=== PATIENT | female | born 2000 | race Caucasian/White ===

== ENCOUNTER 2022-01-05 17:39 | Emergency (ER) | payer SELFPAY ==
[~2022-01-05] VITALS: Ht 170.1 cm; Wt 131.5 kg
--- NOTE | 2022-01-05 17:50 | ED Lower Extremity ---
General Stated Complaint: R FOOT PAIN Source: patient Exam Limitations: no limitations (BLAKE JERRY) History of Present Illness Date Seen by Provider: Jan 05, 2022 Time Seen by Provider: 17:48 Initial Comments Patient is a 21-year-old female who presents ED with with right lateral ankle pain. 1 hour ago she was attempting to put on underwear bearing weight on her left leg at the time when she lost her balance landing on her right leg causing inward rotation of her ankle. She heard immediate pop. Has not been able to bear weight. Obvious swelling noted to right lateral ankle. Neurovascular intact. Able to move her toes. She took Tylenol right before arrival. No history of previous fracture. Denies hitting her head, back pain, chest pain, cough or shortness of breath. (BLAKE JERRY) Allergies and Home Medications Allergies Coded Allergies: No Known Drug Allergies (Unverified , 01/05/22) Patient Home Medication List Home Medication List Reviewed: Yes (BLAKE JERRY) Albuterol Sulfate (Proair Hfa) 1 Puff Puff, 2 PUFF IH Q4H, (Reported) Entered as Reported by: LEWIS DAVALOS on 01/07/22 1206 Hydrocodone/Acetaminophen (Hydrocodone-Acetamin 5-325 mg) 5 Mg-325 Mg Tablet, 1 TAB PO Q4H PRN for PAIN-MODERATE (5-7) Prescribed by: FITO MATOS on 01/05/22 1855 [Zoloft] Unknown Strength , Unknown Dose, (Reported) Entered as Reported by: LEWIS DAVALOS on 01/07/22 1206 Review of Systems Constitutional: No chills, No diaphoresis EENTM: No hearing loss, No ear pain, No blurred vision, No double vision Respiratory: No cough, No dyspnea on exertion Cardiovascular: No chest pain Gastrointestinal: No abdominal pain, No diarrhea, No nausea, No vomiting Genitourinary: No decreased output, No discharge Musculoskeletal: No back pain; joint pain, joint swelling Skin: change in color (BLAKE JERRY) All Other Systems Reviewed Negative Unless Noted: Yes (BLAKE JERRY) Physical Exam Vital Signs Vital Signs - First Documented 01/05/22 17:45 Temp 36.6 Pulse 76 Resp 18 B/P (MAP) 128/93 (105) Pulse Ox 97 O2 Delivery Room Air (NICHOLAS POE MD) Vital Signs Capillary Refill : (BLAKE JERRY) Height, Weight, BMI Height: '" Weight: lbs. oz. kg; BMI Method: General Appearance: WD/WN, no apparent distress HEENT: PERRL/EOMI, normal ENT inspection, TMs normal, pharynx normal Neck: non-tender, full range of motion, supple, normal inspection Cardiovascular: regular rate, rhythm, no edema, no gallop, no JVD Respiratory: chest non-tender, lungs clear, normal breath sounds, no respiratory distress Gastrointestinal: normal bowel sounds, non tender, soft, no organomegaly, no pulsatile mass Back: normal inspection, no CVA tenderness Hips: bilateral hip non-tender, bilateral hip normal inspection, bilateral hip normal range of motion, bilateral hip no evidence of injury Legs: bilateral leg non-tender, bilateral leg normal range of motion, bilateral leg no evidence of injury, bilateral leg abrasions Knees: bilateral knee non-tender, bilateral knee normal inspection, bilateral knee normal range of motion, bilateral knee no evidence of injury Ankles: right ankle pain, right ankle soft tissue tenderness, right ankle swelling Neurologic/Psychiatric: 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 Neurovascular intact. Ordered: Crutches Hand-Made Type: orthoglass Splint Application: Short Leg (BLAKE JERRY) Progress/Results/Core Measures Results/Orders Lab Results Laboratory Tests Test 01/05/22 18:03 Range/Units Urine Color YELLOW Urine Clarity CLOUDY Urine pH 5.5 5-9 Urine Specific Switchback >=1.030 1.016-1.022 Urine Protein NEGATIVE NEGATIVE Urine Glucose (UA) NEGATIVE NEGATIVE Urine Ketones NEGATIVE NEGATIVE Urine Nitrite NEGATIVE NEGATIVE Urine Bilirubin NEGATIVE NEGATIVE Urine Urobilinogen 0.2 < = 1.0 MG/DL Urine Leukocyte Esterase NEGATIVE NEGATIVE Urine RBC (Auto) NEGATIVE NEGATIVE Urine RBC NONE /HPF Urine WBC 0-2 /HPF Urine Squamous Epithelial Cells 5-10 /HPF Urine Crystals PRESENT H /LPF Urine Calcium Oxalate Crystals MODERATE H /LPF Urine Amorphous Sediment MOD JUDAH URATES H /LPF Urine Bacteria TRACE /HPF Urine Casts NONE /LPF Urine Mucus SMALL H /LPF Urine Culture Indicated NO Urine Test NEGATIVE NEGATIVE (NICHOLAS POE MD) Vital Signs/I&O 01/05/22 01/05/22 17:45 19:22 Temp 36.6 Pulse 76 74 Resp 18 18 B/P (MAP) 128/93 (105) 119/87 Pulse Ox 97 97 O2 Delivery Room Air Room Air (NICHOLAS POE MD) Departure Communication (PCP) Patient with a fall. Denies hitting her head loss of conscious. Swelling noted to the right ankle with subtle deformity. Neuro vastly intact. X-ray shows a displaced bimalleolar ankle fracture with disruption of the ankle mortise. Patient was given oral pain medication. Patient was discussed with Dr. Camarena who offered inpatient and surgery tomorrow or follow-up in the office on Friday with surgery on Friday. She agreed with surgery on Friday. Pain controlled here. Recommend placing in a splint. Patient was placed in a posterior short leg and sugar-tong bulky splint. Attempted to apply lateral pressure and help reduce the slight displacement fragments. No evidence of compartment syndrome.m patient was provided crutches. No weightbearing on that leg. Recommend n.p.o. after midnight on Friday. Follow-up in the office at 830. Surgery later that day and will stay the night. She agrees with this plan of action. (BLAKE JERRY) Impression Primary Impression: Ankle fracture Disposition: 01 HOME, SELF-CARE Condition: Stable Departure-Patient Inst. Decision time for Depature: 18:51 (BLAKE JERRY) Referrals: HAWA CAMARENA MD Patient Instructions: Ankle Fracture ED Add. Discharge Instructions: Will discharge with pain medication. Recommend elevate. Crutches as provided. Follow-up with Dr. Camarena on Friday 83 at his office. Surgery that day will stay the night. If any worsening pain to return back to ED for further evaluation. Scripts Hydrocodone/Acetaminophen (Hydrocodone-Acetamin 5-325 mg) 5 Mg-325 Mg Tablet 1 TAB PO Q4H PRN for PAIN-MODERATE (5-7), #20 TAB Prov: BLAKE JERRY 01/05/22 ATTENDING PHYSICIAN NOTE: I was physically present as attending physician in the emergency department during the care of this patient, but I was not directly involved in the decision making or delivery of care for this patient. (NICHOLAS POE MD) BLAKE JERRY Jan 05, 2022 17:50 NICHOLAS POE MD Jan 07, 2022 14:14
[2022-01-05] MEDS ORDERED: HYDROcodone/APAP 5 MG/325 MG (LORTAB) TAB PO ONE (18:15)
--- NOTE | 2022-01-05 18:17 | Diagnostic Imaging Report ---
EXAMINATION: Right ankle 3 views. HISTORY: Ankle injury. COMPARISON: None available. FINDINGS: There are displaced bimalleolar ankle fractures with disruption of the ankle mortise. There is severe soft tissue swelling. Small heel spur is present. IMPRESSION: Displaced bimalleolar ankle fractures with disruption of the ankle mortise. Dictated by: Dictated on workstation # [id number]
[2022-01-05 18:25] LABS: BILIRUBIN,URINE NEGATIVE (NEGATIVE); CLARITY,URINE CLOUDY; COLOR,URINE YELLOW; GLUCOSE, URINE (UA) NEGATIVE (NEGATIVE); KETONES,URINE NEGATIVE (NEGATIVE); LEUKOCYTE ESTERASE ,URINE NEGATIVE (NEGATIVE); NITRITE,URINE NEGATIVE (NEGATIVE); PH,URINE 5.5 (5-9); PROTEIN,URINE NEGATIVE (NEGATIVE)
[2022-01-05 18:37] LABS: AMORPHOUS SEDIMENT,UR MOD AMOR URATES /LPF; BACTERIA,URINE TRACE /HPF; CALCIUM OXALATE CRYSTALS,UR MODERATE /LPF; WBC,URINE 0-2 /HPF
[2022-01-05] MEDS ORDERED: ACHD5005 PO (18:55)
[2022-01-05 19:22] VITALS: BP 119/87
== END 2022-01-05 19:22 | disposition home or self-care (01) ==
LOC: ER 17:42
DX: S82.841A Displaced bimalleolar fracture of right lower leg, initial encounter for closed fracture (principal); S80.812A Abrasion, left lower leg, initial encounter; Z28.310 Unvaccinated for COVID-19; X50.1XXA Overexertion from prolonged static or awkward postures, initial encounter; W01.0XXA Fall on same level from slipping, tripping and stumbling without subsequent striking against object, initial encounter
CPT/HCPCS: 29515; 73610; 81000; 84703

== ENCOUNTER 2022-01-07 10:12 | Day surgery (SDC) | payer SELFPAY ==
[~2022-01-07] VITALS: Ht 177.8 cm; Wt 131.8 kg
[2022-01-07] VITALS (12 sets, daily range): BP systolic 128–153; BP diastolic 58–86
[~2022-01-07 10:12] MED LIST changes: -ASPIRIN 325 MG (5 GR) TABLET PO SCH; -D5 1/2 NS 1000 ML IV SOLUTION 1,000 ML IV SCH; -HYDROcodone/APAP 5 MG/325 MG (LORTAB) TAB PO PRN; -RT-ALBUINH IH; -ZOLOFT; -ceFAZolin 2 GM IV Premixed 50 ML IV SCH; -fentaNYL INJ 100 MCG/2 ML AMP IVP PRN
[2022-01-07] MEDS ORDERED: NEO/POLY/BAC (NEOSPORIN) OINT 15 GM TUBE ONE (10:28)
[2022-01-07] MEDS ORDERED: LIDOCAINE/EPI 2% 1:200,00 (XYLOCAINE) 20 ML VIAL ONE (10:28)
[2022-01-07] MEDS ORDERED: BUPIVACAINE 0.25% 30 ML (SENSORCAINE) VIAL ONE (10:28)
[2022-01-07] MEDS: LACTATED RINGERS 1,000 ML IV PRN ×2 (11:05→13:36)
[2022-01-07] MEDS ORDERED: proPOfol 200 MG/20 ML (DIPRIVAN) VIAL IV ONE ×2 (11:09→11:53)
[2022-01-07] MEDS ORDERED: MIDAZOLAM 2 MG/2 ML (VERSED) VIAL ONE (11:09)
[2022-01-07] MEDS ORDERED: fentaNYL INJ 100 MCG/2 ML AMP ONE (11:09)
[2022-01-07] MEDS ORDERED: LIDOCAINE PF 2% 5 ML (XYLOCAINE) VIAL ONE (11:09)
[2022-01-07] MEDS ORDERED: ceFAZolin 2 GM IV Premixed 50 ML ONE (11:18)
[2022-01-07 11:25] LABS: BASOPHILS # (AUTO) 0.1 10^3/uL (0.0-0.1); BASOPHILS % (AUTO) 0 % (0-10); EOSINOPHILS # (AUTO) 0.3 10^3/uL (0.0-0.3); EOSINOPHILS % (AUTO) 3 % (0-10); HEMATOCRIT 41 % (35-52); HEMOGLOBIN 13.4 g/dL (11.5-16.0); LYMPHOCYTES # (AUTO) 3.2 10^3/uL (1.0-4.0); LYMPHOCYTES % (AUTO) 26 % (12-44); MEAN CORPUSCULAR HEMOGLOBIN 28 pg (25-34); MEAN CORPUSCULAR HGB CONC 32 g/dL (32-36); MEAN CORPUSCULAR VOLUME 86 fL (80-99); MEAN PLATELET VOLUME 11.7 fL (9.0-12.2); MONOCYTES # (AUTO) 0.9 10^3/uL (0.0-1.0); MONOCYTES % (AUTO) 7 % (0-12); NEUTROPHILS # (AUTO) 7.9 10^3/uL (1.8-7.8); NEUTROPHILS % (AUTO) 64 % (42-75); PLATELET COUNT 265 10^3/uL (130-400); WHITE BLOOD COUNT 12.5 10^3/uL (4.3-11.0)
[2022-01-07 11:38] LABS: CALCIUM 9.1 MG/DL (8.5-10.1); CREATININE SERUM 0.84 MG/DL (0.60-1.30); POTASSIUM 3.5 MMOL/L (3.6-5.0)
[2022-01-07] MEDS ORDERED: SUCCINYLCHOLINE INJ 100 MG/5 ML SYR/VIAL ONE (11:54)
[2022-01-07] MEDS ORDERED: RT-ALBUINH IH (12:06)
[2022-01-07] MEDS ORDERED: ZOLOFT (12:06)
[2022-01-07] MEDS ORDERED: SEVOFLURANE (ULTANE) 15 ML INHAL SOLN ONE ×2 (12:24→12:25)
[2022-01-07] MEDS ORDERED: morphine INJ 10 MG/ML 1ML (SYR OR VIAL) ONE (12:27)
[2022-01-07] MEDS ORDERED: MEPERIDINE (DEMEROL) INJ 50 MG/ML IVP ONE (13:30)
[2022-01-07] MEDS ORDERED: morphine INJ 10 MG/ML 1ML (SYR OR VIAL) IVP ONE (13:30)
[2022-01-07] MEDS ORDERED: ONDANSETRON 4 MG/2 ML (SDV) Z0FRAN IVP PRN (13:30)
[2022-01-07] MEDS ORDERED: fentaNYL INJ 100 MCG/2 ML AMP IVP ONE (13:30)
[2022-01-07] MEDS ORDERED: MEPERIDINE (DEMEROL) INJ 50 MG/ML ONE (13:37)
--- NOTE | 2022-01-07 15:15 | Diagnostic Imaging Report ---
INDICATION: Fluoroscopy utilized in Surgery. FINDINGS: Three views show a sideplate along the distal fibula with bone screws and anatomical realignment of the lateral malleolar fracture. Two cannulated bone screws are in the medial malleolus with anatomic alignment. The ankle mortise appears in good alignment. IMPRESSION: Fluoroscopy time reported in Surgery of 23 seconds. Dictated by: Dictated on workstation # [id number]
[2022-01-07] MEDS ORDERED: HYDROcodone/APAP 5 MG/325 MG (LORTAB) TAB PO PRN (15:30)
[2022-01-07] MEDS ORDERED: D5 1/2 NS 1000 ML IV SOLUTION 1,000 ML IV SCH (15:30)
[2022-01-07] MEDS ORDERED: fentaNYL INJ 100 MCG/2 ML AMP IVP PRN (15:30)
[2022-01-07] MEDS: ceFAZolin 2 GM IV Premixed 50 ML IV SCH (18:12)
[2022-01-07] MEDS: fentaNYL INJ 100 MCG/2 ML AMP IVP PRN (23:22)
[2022-01-08] MEDS: ceFAZolin 2 GM IV Premixed 50 ML IV SCH (02:48)
[2022-01-08] MEDS: fentaNYL INJ 100 MCG/2 ML AMP IVP PRN ×2 (02:51→04:57)
[2022-01-08 04:52] VITALS: BP 141/77
[2022-01-08 07:33] VITALS: BP 118/74
[2022-01-08] MEDS ORDERED: ASPIRIN 325 MG (5 GR) TABLET PO SCH (09:00)
--- NOTE | 2022-01-08 10:05 | Progress Note - Ortho ---
Progress Note Subjective Date of Exam 01/08/22 Chief Complaint Bimalleolar fracture right ankle POD#1 HPI/Events since last exam Tamanna Is 1 day postop open reduction internal fixation bimalleolar fracture right ankle. She has been up ambulating with physical therapy. She had difficulty with the crutches but did better with the walker. She is still having some pain and its worse when she gets up but she thinks she is ready to go home. She has been taking hydrocodone 10/325 which is helping with the pain. Review of Systems Reviewed and no additions or changes Allergies: Coded Allergies: No Known Drug Allergies (Unverified , 01/05/22) Home Meds Active Scripts Hydrocodone/Acetaminophen (Hydrocodone-Acetamin 5-325 mg) 5 Mg-325 Mg Tablet, 1 TAB PO Q4H PRN for PAIN-MODERATE (5-7), #20 TAB Prov:BLAKE JERRY 01/05/22 Reported Medications [Zoloft] Unknown Strength No Conflict Check 01/07/22 Albuterol Sulfate (PROAIR HFA) 1 Puff Puff, 2 PUFF IH Q4H, EA 1 PUFF = 90 MCG 01/07/22 Objective Exam Constitutional: [] HEENT: [] Neck: [] Cardiovascular: [] Respiratory: [] Gastrointestinal: [] Genitourinary: [] Skin: [] Back/Spine: [] Extremities: []Splint is in good condition. Normal sensation of the foot and toes with good cap refill. She can move her toes without pain. Neurologic: [] Psychiatric: [] Hematologic/lymphatic/immunologic: [] Vital Signs Vital Signs Date Time Temp Pulse Resp B/P (MAP) Pulse Ox O2 Delivery O2 Flow Rate FiO2 01/08/22 08:00 97 Nasal Cannula 2.00 01/08/22 07:33 36.3 50 16 118/74 (89) 99 Room Air 01/08/22 04:52 36.3 50 18 141/77 (98) 97 Room Air 01/07/22 23:17 36.6 52 18 131/69 (89) 97 Nasal Cannula 2.00 01/07/22 19:58 97 Nasal Cannula 2.00 01/07/22 19:38 36.6 57 16 131/78 (95) 97 Nasal Cannula 2.00 01/07/22 19:38 36.6 57 16 131/78 (95) 97 Nasal Cannula 2.00 01/07/22 16:07 36.3 53 18 153/86 (108) 93 OxyMask 2.00 01/07/22 16:05 36.3 53 18 153/86 (108) 93 OxyMask 2.00 01/07/22 14:15 OxyMask 2.00 01/07/22 14:15 36.7 18 136/82 (100) 94 OxyMask 2.00 01/07/22 14:10 OxyMask 2.00 01/07/22 14:10 18 142/85 (104) 95 OxyMask 2.00 01/07/22 14:00 OxyMask 2.00 01/07/22 14:00 18 141/83 (102) 93 OxyMask 2.00 01/07/22 13:50 18 142/85 (104) 93 OxyMask 2.00 01/07/22 13:45 OxyMask 2.00 01/07/22 13:40 18 130/65 (86) 97 OxyMask 6.00 01/07/22 13:30 18 131/58 (82) 96 OxyMask 6.00 01/07/22 13:30 OxyMask 6.00 01/07/22 13:24 OxyMask 6.00 01/07/22 13:24 36.5 18 136/78 (97) 96 OxyMask 6.00 01/07/22 10:25 36.1 74 20 128/80 (96) 98 Room Air I & O 01/08/22 07:00 Intake Total 1480 ml Output Total 1775 ml Balance -295 ml Lab Results Laboratory Tests 01/07/22 11:10: White Blood Count 12.5H, Red Blood Count 4.79, Hemoglobin 13.4, Hematocrit 41, Mean Corpuscular Volume 86, Mean Corpuscular Hemoglobin 28, Mean Corpuscular Hemoglobin Concent 32, Red Cell Distribution Width 13.7, Platelet Count 265, Mean Platelet Volume 11.7, Immature Granulocyte % (Auto) 0, Neutrophils (%) (Auto) 64, Lymphocytes (%) (Auto) 26, Monocytes (%) (Auto) 7, Eosinophils (%) (Auto) 3, Basophils (%) (Auto) 0, Neutrophils # (Auto) 7.9H, Lymphocytes # (Auto) 3.2, Monocytes # (Auto) 0.9, Eosinophils # (Auto) 0.3, Basophils # (Auto) 0.1, Immature Granulocyte # (Auto) 0.0, Sodium Level 140, Potassium Level 3.5L, Chloride Level 108H, Carbon Dioxide Level 21, Anion Gap 11, Blood Urea Nitrogen 9, Creatinine 0.84, Estimat Glomerular Filtration Rate 100, BUN/Creatinine Ratio 11, Glucose Level 86, Calcium Level 9.1 Microbiology 01/07/22 MRSA Screen - Final, Complete MRSA not isolated Assessment and Plan Assessment Doing well first day postop Problem List Bimalleolar fracture right ankle status post open reduction internal fixation Plan Discharge. Follow-up for splint removal, dressing change and application of a nonweightbearing cast Aspirin 325 mg daily for DVT prophylaxis Elevation and ice right ankle Walker ambulation nonweightbearing on the right Prescription was provided for a folding walker Hydrocodone 10/325 #40 was E scribed to the main [facility]. She will take 1 every 4 hours as needed pain Final Diagonsis Closed Displaced bimalleolar fracture right ankle status post open reduction internal fixation Level of the visit: Level 3 HAWA CAMARENA MD Jan 08, 2022 10:05
--- NOTE | 2022-01-08 10:08 | Operative Report - Ortho ---
Operative Report Surgeon (s)/Drug Safety Assistant (s) Surgeon DAVID WHITFIELD MD Drug Safety Assistant n/a Pre-Operative Diagnosis BIMALLEOLAR FRACTURE RIGHT ANKLE Post-Operative Diagnosis same Operative Report Name of Procedure Performed: [facility] [address] [address] Operative Report - Ortho Patient Name: Tamanna Tolentino Number: [id number] Date of : 2000Patient Status: Registered Clinic Attending Doctor: David Whitfield [facility] Number: [id number] Operative Report Operative Report Surgeon (s)/Drug Safety Assistant (s) Surgeon DAVID WHITFIELD MD Drug Safety Assistant n/a Pre-Operative Diagnosis Displaced bimalleolar fracture right ankle Post-Operative Diagnosis same Operative Report Date of Procedure: Jan 07, 2022 Name of Procedure Performed: Open reduction internal fixation bimalleolar fracture right ankle with 2 4.L partially-threaded cannulated screws both 38 mm in length medial malleolus and a 4-hole distal fibular locking plate laterally Description & Findings The patient was sent to preoperative area after being seen in the clinic. Her right leg was marked. She was given 2 g Ancef preop. Her right leg was marked. She was given 2 g Ancef preop. She was brought to the operating room and placed on the OR table. Her splint was removed from the right lower leg and showed mild swelling with minimal bruising and no skin changes. Tourniquet was placed on the right thigh. The right foot and lower leg were She was brought to the operating room and placed on the OR table. Her splint was removed from the right lower leg and showed mild swelling with minimal bruising and no skin changes. Tourniquet was placed on the right thigh. The right foot and lower leg were prepped and draped in the usual sterile manner. Again the patient was given Ancef 2 g IV preoperatively. The leg was examined with an Esmarch and the tourniquet was elevated to 300 mmHg. A longitudinal incision was made over the distal fibula. This was taken down through Cutaneoustissue. Soft tissue was elevated off the distal fibula. The fracture was a very short oblique almost transverse fracture. This was easily reduced and held with a reduction clamp. Due to the orientation of the fracture no lag screw could be placed. A 4-hole distal fibular locking plate was applied and held in place with the fracture reduced with K wires. A an initial screw was placed in one of the slots in the position of the plate was adjusted. Plate was found to fit well. At this point to locking screws were placed distally. The reduction clamp was removed and image was used to visualize the fracture which was anatomic. Good position of the plate on the fibula was noted. Additional locking screws were placed distally with a total of 5 drilling measuring and inserting appropriate length screws. All were unicortical due to the fact that the screws were at the joint line or below. At this point 3 bicortical screws were placed proximally leaving the most proximal screw hole open. Image was again used to visualize the plate position and screw position and the fracture remained anatomic with no issues with the plate or screws. At this point an incision was made over the medial malleolus. This was obliquely oriented. This is taken down through subtenons tissue. Saphenous vein was identified and retracted. The fracture line was noted and the fracture hematoma was irrigated. The fracture was reduced and held with a reduction clamp. Guidewires were then placed through the tip of the medial malleolus across fracture site into the distal tibia. These are centrally located within the medial malleolus. These were overdrilled through the cortex. 38 mm 4.0 partially-threaded screws were then placed over the guidewires into the distal tibia. Good purchase was noted. The reduction clamp was removed. The image was used to visualize the ankle and again excellent position alignment and no issues with the plate and screw laterally. Excellent position of the screws medially and reduction of the medial malleolus. The mortise was symmetrical. No widening of the syndesmosis. At this point the syndesmosis was stressed using a reduction clamp and lateral pull on the distal fibula. No widening was noted of the syndesmosis. Permanent x-rays were obtained.He tourniquet was deflated after 45 minutes. Minimal bleeding was noted. Small bleeders are cauterized. The wounds were irrigated with normal saline. The wounds were closed with oh, 2-0 Vicryl and skin comes laterally and 2-0 Vicryl and skin with skin clips medially. The wounds were injected with a total of 50 mL of the 50-50 mixture of 2% Xylocaine with epinephrine and 0.25% Marcaine plain. The wounds are dressed with antibiotic ointment, Adaptic, 4 x 4's and then wrapped with 4 inch Webril. A posterior and sugar-tong splint were applied which were wrapped with Chilo wraps. Patient had good capillary refill and pulses after the tourniquet was deflated. Patient was then transferred to recovery room in good condition she tolerated procedure well. She will be bit admitted overnight for observation, pain management and antibiotics. AnesthesiaGeneral [id number] minutes at 300 mmHg Blood loss 50 mL Replacementnone Complicationsnone n/a Estimated Blood Loss 50 mLminimal Packing Nonenone. Specimen(s) collected/removed None Copy To: Copy DAVID WHITFIELD MD2021 13:48 Description & Findings Description and Findings:See narrative above n/a Estimated Blood Loss minimal Packing none. Specimen(s) collected/removed None DAVID WHITFIELD MD Jan 08, 2022 10:08
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
--- NOTE | 2022-01-08 13:18 | Anesthesia-General Post-Op ---
General Post Op Complications Complications None Follow Up Care/Instructions Patient Instructions None needed. Anesthesia/Patient Condition Patient Condition No apparent adverse anesthesia problems in record. READING,GONZALO Bee CRNA Jan 08, 2022 13:18
== END 2022-01-08 11:21 | disposition home or self-care (01) ==
LOC: SDC 10:12 → 4TH 14:17 → SDC 01-08 11:21
PROVIDERS: ATTEND Orthopaedic Surgery
DX: S82.841A Displaced bimalleolar fracture of right lower leg, initial encounter for closed fracture (principal); E66.9 Obesity, unspecified; Z68.41 Body mass index [BMI] 40.0-44.9, adult
CPT/HCPCS: 27814; 76000; 80048; 84703; 85025; 87081; 97162; C1713 ×8; G0463; 36415; 99203

== ENCOUNTER → 2022-01-07 | Outpatient (CLI) | payer SELFPAY ==
[~2022-01-07] MED LIST: ACHD5005 PO; ASPIRIN 325 MG (5 GR) TABLET PO SCH; D5 1/2 NS 1000 ML IV SOLUTION 1,000 ML IV SCH; HYDROcodone/APAP 5 MG/325 MG (LORTAB) TAB PO PRN; RT-ALBUINH IH; ZOLOFT; ceFAZolin 2 GM IV Premixed 50 ML IV SCH; fentaNYL INJ 100 MCG/2 ML AMP IVP PRN
--- NOTE | 2022-01-07 13:48 | Operative Report - Ortho ---
Operative Report Surgeon (s)/Rod Placer (s) Surgeon HAWA CAMARENA MD Rod Placer n/a Pre-Operative Diagnosis Displaced bimalleolar fracture right ankle Post-Operative Diagnosis same Operative Report Date of Procedure: Jan 07, 2022 Name of Procedure Performed: Open reduction internal fixation bimalleolar fracture right ankle with 2 4.L partially-threaded cannulated screws both 38 mm in length medial malleolus and a 4-hole distal fibular locking plate laterally Description & Findings The patient was sent to preoperative area after being seen in the clinic. Her right leg was marked. She was given 2 g Ancef preop. Her right leg was marked. She was given 2 g Ancef preop. She was brought to the operating room and placed on the OR table. Her splint was removed from the right lower leg and showed mild swelling with minimal bruising and no skin changes. Tourniquet was placed on the right thigh. The right foot and lower leg were She was brought to the operating room and placed on the OR table. Her splint was removed from the right lower leg and showed mild swelling with minimal bruising and no skin changes. Tourniquet was placed on the right thigh. The right foot and lower leg were prepped and draped in the usual sterile manner. Again the patient was given Ancef 2 g IV preoperatively. The leg was examined with an Esmarch and the tourniquet was elevated to 300 mmHg. A longitudinal incision was made over the distal fibula. This was taken down through Cutaneoustissue. Soft tissue was elevated off the distal fibula. The fracture was a very short oblique almost transverse fracture. This was easily reduced and held with a reduction clamp. Due to the orientation of the fracture no lag screw could be placed. A 4-hole distal fibular locking plate was applied and held in place with the fracture reduced with K wires. A an ini tial screw was placed in one of the slots in the position of the plate was adjusted. Plate was found to fit well. At this point to locking screws were placed distally. The reduction clamp was removed and image was used to visualize the fracture which was anatomic. Good position of the plate on the fibula was noted. Additional locking screws were placed distally with a total of 5 drilling measuring and inserting appropriate length screws. All were unicortical due to the fact that the screws were at the joint line or below. At this point 3 bicortical screws were placed proximally leaving the most proximal screw hole open. Image was again used to visualize the plate position and screw position and the fracture remained anatomic with no issues with the plate or screws. At this point an incision was made over the medial malleolus. This was obliquely oriented. This is taken down through subtenons tissue. Saphenous vein was identified and retracted. The fracture line was noted and the fracture hematoma was irrigated. The fracture was reduced and held with a reduction clamp. Guidewires were then placed through the tip of the medial malleolus across fracture site into the distal tibia. These are centrally located within the medial malleolus. These were overdrilled through the cortex. 38 mm 4.0 partially-threaded screws were then placed over the guidewires into the distal tibia. Good purchase was noted. The reduction clamp was removed. The image was used to visualize the ankle and again excellent position alignment and no issues with the plate and screw laterally. Excellent position of the screws medially and reduction of the medial malleolus. The mortise was symmetrical. No widening of the syndesmosis. At this point the syndesmosis was stressed us ing a reduction clamp and lateral pull on the distal fibula. No widening was noted of the syndesmosis. Permanent x-rays were obtained.He tourniquet was deflated after 45 minutes. Minimal bleeding was noted. Small bleeders are cauterized. The wounds were irrigated with normal saline. The wounds were closed with oh, 2-0 Vicryl and skin comes laterally and 2-0 Vicryl and skin with skin clips medially. The wounds were injected with a total of 50 mL of the 50-50 mixture of 2% Xylocaine with epinephrine and 0.25% Marcaine plain. The wounds are dressed with antibiotic ointment, Adaptic, 4 x 4's and then wrapped with 4 inch Webril. A posterior and sugar-tong splint were applied which were wrapped with Chilo wraps. Patient had good capillary refill and pulses after the tourniquet was deflated. Patient was then transferred to recovery room in good condition she tolerated procedure well. She will be bit admitted overnight for observation, pain management and antibiotics. AnesthesiaGeneral [id number] minutes at 300 mmHg Blood loss 50 mL Replacementnone Complicationsnone n/a Estimated Blood Loss 50 mLminimal Packing Nonenone. Specimen(s) collected/removed None HAWA CAMARENA MD Jan 07, 2022 13:48
== END ==
LOC: ORTHO 09:30
PROVIDERS: ATTEND Orthopaedic Surgery
DX: S82.841A Displaced bimalleolar fracture of right lower leg, initial encounter for closed fracture (principal); X58.XXXA Exposure to other specified factors, initial encounter

== ENCOUNTER → 2022-01-21 | Outpatient (CLI) | payer SELFPAY ==
[~2022-01-21] MED LIST changes: +RT-ALBUINH IH; +ZOLOFT
--- NOTE | 2022-01-21 09:56 | Diagnostic Imaging Report ---
Indication: Followup right ankle fracture. Time of Exam: 9:29 AM Correlation is made with prior radiograph from 01/05/2022. Postop changes of the right ankle are noted. There is a lateral plate and numerous screws transfixing the distal fibular fracture. There are 2 partially threaded screws transfixing the medial malleolar fracture. Overall alignment is anatomic. Hardware is intact. The ankle mortise is well maintained. Talar dome is smooth. There are medial and and lateral ankle skin [place]. IMPRESSION: ORIF right ankle fractures, as described. Dictated by: Dictated on workstation # [id number]
== END ==
LOC: ORTHO 08:54
PROVIDERS: ATTEND Orthopaedic Surgery
DX: S82.841A Displaced bimalleolar fracture of right lower leg, initial encounter for closed fracture (principal); X58.XXXA Exposure to other specified factors, initial encounter
CPT/HCPCS: 73610

== ENCOUNTER → 2022-02-04 | Outpatient (CLI) | payer OTHER ==
--- NOTE | 2022-02-04 12:04 | Diagnostic Imaging Report ---
INDICATION: Right ankle pain. Postop. Comparison with 01/21/2022. FINDINGS: 3 views. The side plate along the distal fibula as well as bone screws in the medial malleolus remain in good position. There is anatomical alignment of bimalleolar fracture. No callus formation has developed. The articulating surfaces and joint spaces are well-maintained. IMPRESSION: Stable appearing ORIF of bimalleolar fracture. Dictated by: Dictated on workstation # [id number]
== END ==
LOC: ORTHO 08:35
PROVIDERS: ATTEND Orthopaedic Surgery
DX: S82.841A Displaced bimalleolar fracture of right lower leg, initial encounter for closed fracture (principal); X58.XXXA Exposure to other specified factors, initial encounter
CPT/HCPCS: 73610

== ENCOUNTER → 2022-02-20 | Outpatient (CLI) | payer OTHER ==
--- NOTE | 2022-02-20 09:57 | Diagnostic Imaging Report ---
INDICATION: Bimalleolar fracture EXAMINATION: Right ankle 02/20/2022 Comparison to 02/04/2022. FINDINGS: There is a sideplate with multiple screws along the distal fibula. Distally threaded screw extends through the medial malleolus. The orthopedic hardware appears intact. Fractures are in good anatomic alignment. Incomplete healing of the medial malleolus fracture is noted. The ankle mortise appears intact. There is mild soft tissue swelling about the ankle. IMPRESSION: 1. Uncomplicated postoperative changes. Dictated by: Dictated on workstation # [id number]
== END ==
LOC: ORTHO 09:23
PROVIDERS: ATTEND Orthopaedic Surgery
DX: S82.841A Displaced bimalleolar fracture of right lower leg, initial encounter for closed fracture (principal); X58.XXXA Exposure to other specified factors, initial encounter
CPT/HCPCS: 73610

== ENCOUNTER → 2022-03-06 | Outpatient (CLI) | payer OTHER ==
--- NOTE | 2022-03-06 09:07 | Diagnostic Imaging Report ---
CLINICAL HISTORY: Follow-up right ankle fracture. COMPARISON: 02/20/2022. TECHNIQUE: 3 views of the right ankle. FINDINGS: Stable pos surgical changes of open reduction and internal fixation of the distal right tibia and fibula for bimalleolar fracture. There is anatomic alignment of the right ankle. No evidence of hardware loosening or fracture. No new fractures are identified. IMPRESSION: 1. Stable postsurgical changes of open reduction and internal fixation of the bimalleolar fracture of the right ankle. No malalignment or hardware complication. Dictated by: Dictated on workstation # [id number]
== END ==
LOC: ORTHO 08:49
PROVIDERS: ATTEND Orthopaedic Surgery
DX: S82.841A Displaced bimalleolar fracture of right lower leg, initial encounter for closed fracture (principal); X58.XXXA Exposure to other specified factors, initial encounter; Z98.890 Other specified postprocedural states
CPT/HCPCS: 73610

== ENCOUNTER → 2022-03-15 | Outpatient (RCR) | payer OTHER | END | disposition home or self-care (01) | PROVIDERS: ATTEND Orthopaedic Surgery | DX: S82.841D Displaced bimalleolar fracture of right lower leg, subsequent encounter for closed fracture with routine healing (principal); J45.909 Unspecified asthma, uncomplicated; W19.XXXD Unspecified fall, subsequent encounter ==

== ENCOUNTER → 2022-03-27 | Outpatient (CLI) | payer OTHER ==
--- NOTE | 2022-03-27 09:58 | Diagnostic Imaging Report ---
INDICATION: Postop fracture. COMPARISON: 03/06/2022. FINDINGS: Partially-threaded screws transfix the medial malleolus in anatomic alignment. No residual fracture line. Plate and screws transfix the distal fibula in anatomic alignment with no residual or recurrent fracture. No hardware disruption. No adverse development. IMPRESSION: Prior surgical changes with healed malleolar fractures and no adverse development or acute pathology apparent. Dictated by: Dictated on workstation # [id number]
== END ==
LOC: ORTHO 08:24
PROVIDERS: ATTEND Orthopaedic Surgery
DX: Z47.89 Encounter for other orthopedic aftercare (principal); Z87.81 Personal history of (healed) traumatic fracture
CPT/HCPCS: 73610

== ENCOUNTER 2022-04-09 14:27 | Outpatient (RCR) | payer OTHER ==
[~2022-04-09 14:27] MED LIST changes: +ALBU8.5H6 IH; -RT-ALBUINH IH
== END 2022-04-15 | disposition home or self-care (01) ==
PROVIDERS: ATTEND Orthopaedic Surgery
DX: S82.841D Displaced bimalleolar fracture of right lower leg, subsequent encounter for closed fracture with routine healing (principal); J45.909 Unspecified asthma, uncomplicated; W19.XXXD Unspecified fall, subsequent encounter